=== PATIENT | male | born 1960 | race Caucasian/White ===

== ENCOUNTER 2017-11-10 10:24 | Emergency (ER) | payer MEDICARE, MEDICAID ==
[2017-11-10] MEDS ORDERED: NORMAL SALINE 1,000 ML IV ONE (10:29)
[2017-11-10] MEDS ORDERED: DIPHTH,PERTUSS(ACELL),TET VAC 0.5 ML VIAL IM ONE ×2 (10:33→11:38)
[2017-11-10 10:50] LABS: Hematocrit 48.4 % (42.0-52.0); Hemoglobin 17.2 gm/dL (13.5-18.0); Mean Corpuscular Hemoglobin 31.3 pg (27-31); Mean Corpuscular Hgb Conc 35.5 g/dl (32-36); Mean Platelet Volume 9.9 fl (6.0-9.5); Neutrophil # 12.1 K/mm3 (1.3-6.0); Neutrophil % 89.1 % (42-75.0); Platelet Count 154 K/mm3 (150-450); Red Cell Distribution Width 13.2 % (11.5-14.0); White Blood Count 13.6 K/mm3 (4.0-10.5)
[2017-11-10 11:09] LABS: ALT 46 U/L (19-67); AST 34 U/L (0-48); Albumin * 4.1 gm/dl (3.4-5.0); Alkaline Phosphatase * 89 U/L (50-170); Anion Gap 16.2 mmol/L (6.8-13.8); Bilirubin, Total 0.5 mg/dL (0.0-1.1); Ca. Corrected For Albumin 8.6 mg/dL (8.4-10.2); Carbon Dioxide 23.6 mmol/L (24-32.6); Chloride 104 mmol/L (97-106); Glucose * 136 mg/dL (70-110); Potassium 3.8 mmol/L (3.4-4.6); Sodium 140 mmol/L (132-142); Total Protein 7.4 gm/dL (6.2-8.2); Troponin I 0.082 ng/ml (0.00-0.10)
[2017-11-10 11:17] LABS: Phenytoin 0.7 mcg/mL (10-20)
[2017-11-10 11:25] LABS: BUN/Creatinine Ratio 9.4 (9.0-21.6); Blood Urea Nitrogen 11 mg/dL (6-23)
[2017-11-10] MEDS ORDERED: PHENYTOIN SODIUM 1,000 MG in NORMAL SALINE 50 ML IV ONE (11:52)
--- NOTE | 2017-11-10 12:05 | ERNOTE ---
Neuro HPI ER Record Date of Service: 11/10/17 Presenting Symptoms: confusion Time Seen by Provider: 11/10/17 10:28 Source: family Exam Limitations: clinical condition Immunizations: IMMUNIZATION HX History of Influenza Vaccine More Information Required Hx Pneumococcal Vaccination More Information Required Home Medications: HOME MEDICATIONS Omeprazole 20 mg PO DAILY 11/10/17 [Last Taken Unknown] Phenytoin Sodium Extended 100 mg PO 11/10/17 [Last Taken Unknown] Pregabalin [Lyrica] 100 mg PO BID 11/10/17 [Last Taken Unknown] - History of Present Illness Narrative: Patient unable to provide any history. Daughter found him down in the shower in his home confused. He had apparently fallen and had blood in his face. He is unable to provide any history. Daughter states he is not back to normal. Unknown time of onset. Not in any stroke window. He is unable to provide Hx. Did have bladder incontinence. No clear seizure seen. Onset: other - unknown Context: fall - Character of Deficits New weakness: Present: other - unable to tell me Additional Deficits: Present: other - confusion Associated Symptoms: Reports: confused Prior Treament: Denies: recently seen Review of Systems - Narrative Narrative: unable d/t patient condition and confusion - Social History Smoking Status: Unknown if ever smoked Have you smoked in the past 12 months: - unk Do you dip or chew tobacco: - unk - Immunizations Hx Pneumococcal Vaccination: More Information Required to Determine History of Influenza Vaccine: More Information Required to Determine Physical Exam - Physical Exam General Appearance: Present: other - alet chucho confused but will not answer my questions. Head Exam: Absent: Brown's Sign, raccoon eyes Eye Exam: Normal inspection: bilateral, PERRL: bilateral Ears, Nose, Throat: Present: other - no active bleeding. No nasal septal hematoma Neck: Present: other - lef tin c-coller. No tracheal deviation Respiratory: Present: no respiratory distress, normal breath sounds, lungs clear Cardiovascular/Chest: Present: regular rate, rhythm, normal peripheral pulses Gastrointestinal/Abdominal: Present: normal bowel sounds, nondistended, other - no apparent tenderness Extremity Exam: Present: other - no deformity. no apparent tenderness Neurological Exam: Present: other - confused. No clear evidence of unialteral motor deficits or acute CN deficits but this is a complicated exam. Skin Exam: Present: warm/dry ED Progress - Results and Orders Patient's Lab Results:: I have reviewed the patient's lab results. - Vital Signs Patient's Vital Signs:: I have reviewed the patient's vital signs. Vital Signs: Vital Signs 11/10/17 11/10/17 11/10/17 10:26 10:45 11:00 Temperature 36.1 C L Pulse Rate 94 86 87 Respiratory 22 H 16 16 Rate Blood Pressure 129/90 129/88 126/91 O2 Sat by Pulse 94 95 97 Oximetry 11/10/17 11:39 Temperature Pulse Rate 97 Respiratory 16 Rate Blood Pressure 125/92 O2 Sat by Pulse 96 Oximetry - EKG EKG: NSR EKG read: Interp. by me EKG Comments: NSR rate95. Non-specific ST/T wave changes, no clear evidence of STEMI. - CT/Ultrasound CT/Ultrasound Narrative: I reviewed CT of Head, Max/fac and C-spine official reports. - Progress/Reassessment Chief Complaint: Altered Mental Status Progress Note-Subjective: 11/10/17 12:17 MS changes. Low phenytoin, IV Dilantin given, No Sz actvity here. Confusion possible secondary to prolonged post ictal vs head injury. HCT cannot r/o hemorrhage. At this time no clear evidence of stroke. He seems to move all extremities but difficult exam. Given HCT findings needs tertiary care. D/W Dr Perez at [facility], he accepts transfer, daughter notified. EMS transfer to [facility]. Departure Clinical Impression: Fall, Head injury, Confusion, Subtherapeutic serum phenytoin level - Departure Disposition: [facility] Condition: Fair
[2017-11-10 14:04] VITALS: BP 161/93
== END 2017-11-10 12:26 | disposition short-term general hospital (02) ==
LOC: ER 10:24
DX: W18.2XXA Fall in (into) shower or empty bathtub, initial encounter; R79.9 Abnormal finding of blood chemistry, unspecified; F44.89 Other dissociative and conversion disorders; Z23 Encounter for immunization; S09.90XA Unspecified injury of head, initial encounter; G93.89 Other specified disorders of brain; Y93.9 Activity, unspecified; Y92.002 Bathroom of unspecified non-institutional (private) residence as the place of occurrence of the external cause
CPT/HCPCS: 36415; 70450; 70486; 72125; 80053; 80185; 82550; 84484; 85025; 90471; 90715; 93005; 96365; 99285; G0481